=== PATIENT | male | born 1985 ===

== ENCOUNTER 2017-08-03 23:33 | Emergency (ER) | payer SELFPAY ==
[2017-08-03 23:55] VITALS: BP 123/70; PULSE 89; RESP 20; TEMP 97.8; O2SAT 98
[2017-08-04] MEDS ORDERED: Bacitracin 500 Units/gm Oint Foilpak UD ONE (00:29)
[2017-08-04] MEDS ORDERED: Amoxicillin-Clav 875-125 mg Tab PO ONE (00:29)
[2017-08-04] MEDS ORDERED: Amoxicillin-Clav 875-125 mg Tab PO STA (00:32)
[2017-08-04] MEDS ORDERED: Bacitracin Ointment 30 GM TUBE TOP STA (00:32)
--- NOTE | 2017-08-04 00:33 | C.PDOC ---
History Of Present Illness 31 year old male who fell last night and suffered a laceration to the chin, states he had bleeding that resolved at the time but was urged by family to seek care today. Denies LOC. Time Seen by Provider: 08/04/17 00:02 Chief Complaint (Nursing): Abnormal Skin Integrity History Per: Patient History/Exam Limitations: no limitations Onset/Duration Of Symptoms: Hrs Current Symptoms Are (Timing): Still Present Location Of Injury: Anterior: Face Quality Of Symptoms: Other (Laceration) Recent travel outside of the [place]: No Past Medical History Reviewed: Historical Data, Nursing Documentation, Vital Signs Vital Signs: Last Vital Signs Temp 97.8 F 08/03/17 23:53 Pulse 89 08/03/17 23:53 Resp 20 08/03/17 23:53 BP 123/70 08/03/17 23:53 Pulse Ox 98 08/04/17 06:55 - Medical History PMH: No Chronic Diseases Surgical History: No Surg Hx Family History: States: Unknown Family Hx - Social History Hx Alcohol Use: Yes Hx Substance Use: No - Immunization History Hx Tetanus Toxoid Vaccination: No Hx Influenza Vaccination: No Hx Pneumococcal Vaccination: No Review Of Systems Skin: Positive for: Other (Laceration) Neurological: Negative for: Other (LOC) Physical Exam - Physical Exam Appears: Non-toxic, No Acute Distress Skin: Warm, Dry Head: Normacephalic, Laceration (Through and through laceration of chin. Internal lip wound area appears macerated, mildly erythematous and external in early healing stage. No swelling, no drainage, or active bleeding.) Eye(s): bilateral: Normal Inspection Nose: Normal Oral Mucosa: Moist Lips: Normal Appearing Teeth: Normal Dentition Gingiva: Normal Appearing Neck: Normal, No Midline Cervical Tenderness, No Paracervical Tenderness, Supple ED Course And Treatment O2 Sat by Pulse Oximetry: 98 (room air) Pulse Ox Interpretation: Normal Progress Note: Old wounds with early stages of healing and maceration of wound at inner lower lip, no indication for wound repair at this time as wound has been open over 24 hours, given wound care instructions and advised to follow up with PMD in 2 days for wound check. Disposition Counseled Patient/Family Regarding: Diagnosis, Need For Followup, Rx Given - Disposition Referrals: [facility] [Outside] Disposition: HOME/ ROUTINE Disposition Time: 00:30 Condition: STABLE Additional Instructions: Wound check in 2 days in clinic Wound instructions to be followed as directed Take medication prescribed Use mouth wash to swish and spit Apply bacitracin or neosporin oint Return to ER if worse Prescriptions: Amoxicillin/Clavulanate [Augmentin 875 MG-125 MG] 1 tab PO BID #14 tab Instructions: Acute Dental Trauma (ED) Forms: [employer] (Telugu) - Clinical Impression Clinical Impression: Laceration of internal mouth, Open wound of chin - PA / [employer]LE[employer] / Resident Statement MD/DO has reviewed & agrees with the documentation as recorded. - Scribe Statement The provider has reviewed the documentation as recorded by the Scribdiya Fagan All medical record entries made by the Kavinibdiya were at my direction and personally dictated by me. I have reviewed the chart and agree that the record accurately reflects my personal performance of the history, physical exam, medical decision making, and the department course for this patient. I have also personally directed, reviewed, and agree with the discharge instructions and disposition.
== END 2017-08-04 01:03 | disposition home or self-care (01) ==
LOC: C.ER 23:33
DX: S01.512A Laceration without foreign body of oral cavity, initial encounter (principal); S01.81XA Laceration without foreign body of other part of head, initial encounter; W18.30XA Fall on same level, unspecified, initial encounter; Y92.007 Garden or yard of unspecified non-institutional (private) residence as the place of occurrence of the external cause